=== PATIENT | male | born 1955 | race Caucasian/White ===

== ENCOUNTER 2021-04-26 21:54 | Emergency (ER) | payer OTHER ==
[~2021-04-26] VITALS: Ht 180.3 cm; Wt 133.8 kg
[2021-04-26 22:08] VITALS: BP 122/68
--- NOTE | 2021-04-26 22:14 | NUR ---
ERMD IN TRIAGE FOR MEDICAL EVALUATION.
--- NOTE | 2021-04-26 22:23 | NUR ---
PT TAKEN TO ER BED 2 VIA W/C
--- NOTE | 2021-04-26 22:25 | NUR ---
PATIENT BIB SELF FOR C/O BILATERAL LEG PAIN /. BILATERAL SWELLING OF LOWER EXTREMITIES; RED, AND FOUL SMELL. AAOx4. MEDHX: DM TYPE II, CHF, HYPOTHYROID. ALLERGIES: NKA
--- NOTE | 2021-04-26 22:30 | NUR ---
BLOOD CULTURES & BLOOD LABS COLLECTED , WALKED TO LAB AND HANDED TO EMIL LUCAS TECH.
[2021-04-26 23:04] LABS: BASOPHILS # (AUTO) 0.1 K/uL (0.00-0.22); BASOPHILS % (AUTO) 0.6 % (0.0-2.0); EOSINOPHILS # (AUTO) 0.1 K/uL (0-0.4); EOSINOPHILS % (AUTO) 1.4 % (0.0-4.0); HEMATOCRIT 42.7 % (36-52); HEMOGLOBIN 14.1 g/dL (12.0-18.0); LYMPHOCYTES # (AUTO) 1.2 K/uL (2.0-11.5); LYMPHOCYTES % (AUTO) 12.5 % (20.5-51.1); MEAN CORPUSCULAR HEMOGLOBIN 29 pg (27-31); MEAN CORPUSCULAR HGB CONC 33 g/dL (33-37); MEAN CORPUSCULAR VOLUME 87.5 fL (80-94); MONOCYTES # (AUTO) 1.1 K/uL (0.8-1.0); MONOCYTES % (AUTO) 11.1 % (1.7-9.3); NEUTROPHILS # (AUTO) 7.1 K/uL (1.8-7.7); NEUTROPHILS % (AUTO) 74.4 % (42.2-75.2); PLATELET COUNT (AUTO) 337 K/uL (140-450); RED BLOOD CELL COUNT(AUTO) 4.88 MIL/uL (4.20-6.10); RED CELL DISTRIBUTION WIDTH 14.8 % (11.6-13.7); WHITE BLOOD COUNT (AUTO) 9.5 K/uL (4.8-10.8)
[2021-04-26] MEDS ORDERED: NACL 0.9% 4,000 ML IV ONE (23:20)
[2021-04-26] MEDS ORDERED: VANCOMYCIN 1,000 MG in DEXTROSE 5% 250 ML IV ONE (23:20)
[2021-04-26] MEDS ORDERED: LEVOFLOXACIN 500 MG/D5W PREMIX 100 ML IV ONE (23:20)
[2021-04-26 23:21] LABS: CREATININE 2.2 mg/dL (0.6-1.3); TOTAL BILIRUBIN 0.9 mg/dL (0.0-1.0)
--- NOTE | 2021-04-26 23:22 | NUR ---
SPOKE W/ TRISHA , PT'S SO , PER TRISHA SHE IS PT'S POA IF HE TRIES TO SIGN OUT AMA GIVE HER A CALL.
--- NOTE | 2021-04-26 23:43 | NUR ---
Patient starting to get anxious and Spoke with patient. Patient wanting to do an AMA. notified.
--- NOTE | 2021-04-27 00:03 | NUR ---
Pt given phone and speaking with Erica about wanting to leave AMA.
--- NOTE | 2021-04-27 00:50 | NUR ---
Witnessed Gianni NICOLE speaking with patient about his life being in danger and said he understood but said, "I don't want to be here." if he continuous with the AMA.
--- NOTE | 2021-04-27 01:15 | NUR ---
patient refused to go to CT, witnessed by Jerardo, CT
[2021-04-27 01:29] LABS: APPEARANCE,URINE CLOUDY (CLEAR); BILIRUBIN,URINE NEGATIVE (NEGATIVE); BLOOD, URINE 2+ (NEGATIVE); COLOR,URINE YELLOW (YELLOW); LEUKOCYTE ESTERASE ,URINE 2+ (NEGATIVE); NITRITE, URINE NEGATIVE (NEGATIVE); UGLUCOSE NEGATIVE (NEGATIVE)
--- NOTE | 2021-04-27 01:39 | NUR ---
BONNIE Archer tried speaking with the patient again about the dangers in leaving AMA but patient persistently says he needs and wants to leave.
[2021-04-27 01:50] LABS: WBC,URINE 60-80 /HPF (0-5)
--- NOTE | 2021-04-27 02:01 | NUR ---
left message for pt's girlfriend , Whitney for eta . No response at this time.
--- NOTE | 2021-04-27 02:19 | NUR ---
Called Whitney again - no response at this time.
[2021-04-27] MEDS ORDERED: VANCOMYCIN 1,000 MG VIAL ONE (02:41)
--- NOTE | 2021-04-27 03:05 | NUR ---
called GEE gonzalez at this time.
--- NOTE | 2021-04-27 03:19 | NUR ---
OBSERVED PATIENT AMBULATE WITH STE[facility]Y GAIT.
--- NOTE | 2021-04-27 03:37 | NUR ---
Called [employer] cab for patient but they said that [employer] will come after [phone]. the [employer] company will call hospital when it is on its way.
--- NOTE | 2021-04-27 03:48 | NUR ---
Called Whitney again- no answer at this time.
[2021-04-27] MEDS ORDERED: LEVO500T98 PO (04:16)
--- NOTE | 2021-04-27 04:30 | NUR ---
Patient does not wish to proceed with medical care recommended by Gianni GEE. Patient given information related to possible complications, up to and including , which could occur as a result of leaving hospital at this time. Patient verbalizes understanding of risks involved leaving against medical advice. Patient has signed AMA form. Patient was discharged by Dr. Archer with medication and forms.
[2021-04-27 04:42] VITALS: BP 134/73
--- NOTE | 2021-04-27 06:20 | NUR ---
Attempted to call Whitney-- no answer at this time
--- NOTE | 2021-04-27 07:08 | NUR ---
Patient ambulated to the lobby to wait for his taxi cab provided by the hospital. Patient discharged at 0430 and has been in the room to rest due to waiting for the taxi that is supposed to come after 0630 to take patient home.
--- NOTE | 2021-04-29 02:28 | NUR ---
LATE ENTRY- LEVAQUIN IVPB DISCONTINED AT 0150 AND VANCOCIN IVPB DISCONTINUED AT 0405
== END 2021-04-27 04:30 | disposition left against medical advice (07) ==
LOC: MED 21:54
DX: M79.604 Pain in right leg (principal); E11.22 Type 2 diabetes mellitus with diabetic chronic kidney disease; I13.0 Hypertensive heart and chronic kidney disease with heart failure and stage 1 through stage 4 chronic kidney disease, or unspecified chronic kidney disease; N18.32 Chronic kidney disease, stage 3b; N39.0 Urinary tract infection, site not specified; E87.1 Hypo-osmolality and hyponatremia
CPT/HCPCS: 36415; 71045; 73630; 80053; 81001; 83036; 83605; 83880; 84484; 85025; 87040; 93005; 96365; 96367; 99291; J1956; J3370